=== PATIENT | female | born 1995 | race Caucasian/White ===

== ENCOUNTER 2019-07-18 06:19 | Day surgery (SDC) | payer BC ==
[~2019-07-18] VITALS: Ht 165.1 cm; Wt 48.9 kg
[~2019-07-18 06:19] MED LIST: LR 1,000 ML IV ONE
[2019-07-18 06:50] LABS: URINE PREG TEST NEGATIVE (NEGATIVE)
[2019-07-18] MEDS ORDERED: BUPIVACAINE HCL 0.25% 30 ML VIAL As Ordered ONE (07:12)
[2019-07-18] MEDS ORDERED: LIDOCAINE 1% SDV INJ 30 ML VIAL As Ordered ONE (07:12)
[2019-07-18] MEDS ORDERED: fentaNYL 100 MCG/2 ML INJECTION (J3010) As Ordered ONE (07:38)
[2019-07-18] MEDS ORDERED: PROPOFOL 200 MG/20 ML VIAL As Ordered ONE (07:38)
[2019-07-18] MEDS ORDERED: dexameTHASONE 4 MG/ML 1ML VIAL (J1100) As Ordered ONE (07:38)
[2019-07-18] MEDS ORDERED: ONDANSETRON 4MG/2ML VIAL (J2405) As Ordered ONE (07:38)
[2019-07-18] MEDS ORDERED: LIDOCAINE 2% INJ 100 MG/5 ML SDV (FOR ANES.) As Ordered ONE (07:38)
[2019-07-18] MEDS ORDERED: MIDAZOLAM INJ 2 MG/2 ML VIAL (J2250) As Ordered ONE (07:38)
[2019-07-18] MEDS ORDERED: ePHEDrine SULFATE 25 MG/5 ML(5MG/ML) SYRINGE As Ordered ONE (07:49)
[2019-07-18] MEDS ORDERED: ONDANSETRON 4MG/2ML VIAL (J2405) IV PRN (09:30)
[2019-07-18] MEDS ORDERED: HYDROMORPHONE HCL 0.5 MG/ 0.5 ML SYRINGE (J1170 PER 1) IV PRN (09:30)
[2019-07-18] MEDS ORDERED: fentaNYL 100 MCG/2 ML INJECTION (J3010) IV PRN (09:30)
[2019-07-18] MEDS ORDERED: PERCOCET 5MG/325MG TAB PO PRN (09:30)
[2019-07-18] MEDS ORDERED: LR 1,000 ML IV SCH (09:30)
[2019-07-18] MEDS ORDERED: ACETAMINOPHEN 500 MG TAB PO PRN (09:45)
[2019-07-18] MEDS ORDERED: IBUPROFEN 400 MG TAB PO PRN (09:45)
[2019-07-18 10:05] VITALS: BP 116/67
--- NOTE | 2019-07-20 12:55 | RO ---
DATE OF PROCEDURE: 07/18/2019 PREOPERATIVE DIAGNOSIS: Left breast mass. POSTOPERATIVE DIAGNOSIS: Left breast mass. PROCEDURE PERFORMED: Excision of 3.5 cm left breast mass. SURGEON: Dr. Davey Hernandes ANESTHESIA: General with LMA. INDICATIONS FOR THE PROCEDURE: The patient is a 24-year-old woman with an at least 1 year history of a palpable nodule in the lower outer aspect of the left breast. This has increased in size both by palpation and ultrasound. 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 OPERATIVE PROCEDURE: The patient was placed supine on the operating table. She was placed under general anesthesia. The patient's left breast and chest wall were prepped and draped in a sterile fashion. By palpation, the nodule was identified just above the inframammary fold at about the 5 o'clock position. The skin incision was marked with a skin marker and an approximately 3-4 cm curved incision was made in the inframammary fold. The tissues were opened at the inferior edge of the breast. Breast tissue was opened and peeled away from the large firm mass. There appeared to be a tissue plane between the mass and the surrounding breast tissue and the mass was effectively enucleated from the surrounding breast tissue. This was sent for permanent pathology. Hemostasis was ensured with the cautery. The opened breast tissue was approximated with several interrupted simple sutures. 0.25% Marcaine was infiltrated around the wound for postoperative analgesia. The subcutaneous tissues were closed with chromic and the skin edges with a running subcuticular 4-0 Vicryl and Steri-Strips. A light dressing was applied. The patient tolerated the procedure well without apparent complication. She was awakened in the operating room, extubated and moved to the recovery room in stable condition.
== END 2019-07-18 10:13 | disposition home or self-care (01) ==
LOC: M SDC 06:19
PROVIDERS: ATTEND Surgery
DX: D24.2 Benign neoplasm of left breast (principal); N60.22 Fibroadenosis of left breast
CPT/HCPCS: 19120; 84703; 88305; J1100; J2250; J2405; J3010